=== PATIENT | female | born 1995 | race Caucasian/White ===

== ENCOUNTER → 2020-10-22 13:56 | Outpatient (BNVA) | payer OTHER, SELFPAY | PROVIDERS: Family Provider Pediatrics Adolescent Medicine; Visit Provider Surgery | DX: Z20.828 Contact with and (suspected) exposure to other viral communicable diseases (principal); Z01.812 Encounter for preprocedural laboratory examination | CPT/HCPCS: 87635 ==

== ENCOUNTER 2020-10-27 07:10 | Day surgery (SDC) | payer OTHER, SELFPAY ==
[2020-10-26 14:12] VITALS: BMI 20.3
[2020-10-27 07:25] VITALS: BP 105/68; PULSE 52; RESP 16; TEMP 36.4; O2SAT 100
[2020-10-27] MEDS: sodium chloride 0.9% 1,000 ML 30 ML IV (07:49)
[2020-10-27 07:57] LABS: OR HCG Qualitative Urine Negative (Negative)
--- NOTE | 2020-10-27 08:17 | W.PM.OPSUD ---
Surgery/Procedure H&P Update DATE OF PROCEDURE: October 27, 2020 DATE H&P PERFORMED: 10/12/20 H&P UPDATE INFORMATION: I have reviewed H&P completed within last 30 days, I have examined patient prior to procedure and No changes to prior documentation PREOP DIAGNOSIS: abdominal wall mass PLANNED PROCEDURE: Operation Date: 10/27/20 08:30 Proposed Procedures p Excision abdominal wall mass 29580 r22.2(Not Applicable) - Bethel Lino MD
--- NOTE | 2020-10-27 08:20 | ANES.PREANE2 ---
Pre-Anesthetic Assessment Pre-Anesthetic Assessment: Height/Weight: Height 1.7 m Weight 58.967 kg Temp Pulse Resp BP Pulse Ox 97.5 F L 52 L 16 105/68 100 10/27/20 07:25 10/27/20 07:25 10/27/20 07:25 10/27/20 07:25 10/27/20 07:25 Preop Diagnosis: abdominal wall mass Proposed Procedure: Operation Date: 10/27/20 08:30 Proposed Procedures p Excision abdominal wall mass [id number] r22.2(Not Applicable) - Bethel Lino MD Familial anesthetic complications: denies Was Beta Nav taken within 24 hours: N/A Last intake: Intake Last Liquid Date 10/26/20 Last Liquid Time 08:00 Last Solid Date 10/26/20 Last Solid Time 20:00 Last Intake: 00:02 Social: Social History: Tobacco and No alcohol Packs per day: 1-2 packs per week Exam: Pre-Anes Outpt Exam: alert, oriented x 3 and clear to auscultation bilaterally Airway: Submandibular: WNL Cervical ROM: WNL MP: 1 Pulmonary: Pulmonary: URI (sinus infection last week treated with antibiotics ) CV/HEM: CV/HEM: None reported : : None reported Hepatic: Hepatic: None reported GI: GI: None reported Metabolic: Metabolic: None reported Musc/skel: Musc/skel: None reported Neuropsych: Neuropsych: None reported Anesthetic Plan: ASA status: 2 Anesthesia: Anesthesia Evaluation and MAC Meds/Allergies Current Medications: Current Medications Generic Name Dose Route Start Last Admin Trade Name Freq PRN Reason Stop Dose Admin Sodium Chloride 1,000 mls @ 30 ml s/hr 10/27/20 07:15 10/27/20 07:49 Sodium Chloride 0.9% IV 10/28/20 07:14 30 mls/hr .Q24H MATT Administration PFSH Anesthesia PFSH: Surgical History History of Family History Denies family history of Anesthesia complication Bleeding disorder Social History Smoking and tobacco status: current every day smoker Alcohol intake: current Alcohol intake frequency: holidays/special occasions only Female Reproductive History: Date of last menstrual period: 10/19/20 Data Anesthesia Other Labs: Laboratory Results - last 48 hr 10/27/20 07:50 Urine HCG, Qual Negative Cardiac Studies: No Data to Display
[2020-10-27 09:22] VITALS: BP 95/47; PULSE 78; RESP 12; TEMP 36.2; O2SAT 97
[2020-10-27 10:00] VITALS: BP 116/73; PULSE 51; RESP 16; TEMP 36.4; O2SAT 100
--- NOTE | 2020-10-27 13:47 | PM.OP ---
Operative Report Date of procedure: October 27, 2020 Pre-op Diagnosis: Right lower quadrant abdominal wall mass Post-op Diagnosis: Subcutaneous mass involving the anterior rectus sheath, appeared to be cystic with greenish drainage noted Post-op Findings: Aerobic and anaerobic cultures sent Procedure Done: Excision of abdominal wall mass Specimens removed/disposition: Abdominal wall mass Surgeon: Bethel Lino Anesthesia: MAC Condition: stable Disposition: PACU Procedure: The patient was taken to the operating room and placed under MAC after IV antibiotic had been administered. The right lower abdomen was prepped and draped in a sterile manner. 1% lidocaine with . 5% Marcaine was infiltrated around the palpable mass which had been marked prior to surgery. Using a 15 blade a 3 cm longitudinal incision was made over the palpable mass, subcutaneous tissues were divided using electrocautery and the mass was dissected free from the surrounding subcutaneous tissue and underlying anterior rectus sheath. There was no significant involvement of the rectus muscle noted. Aerobic and anaerobic wound cultures were obtained since there was greenish drainage noted when the cyst ruptured while manipulating. The wound was irrigated with saline, and the defect in the anterior rectus sheath was closed using 0 Vicryl suture, subcutaneous tissues approximated using interrupted 3-0 Vicryl suture and skin was closed using running subcuticular 4-0 Monocryl and surgical glue. The patient was transferred to recovery room in stable condition.
--- NOTE | 2020-10-27 13:57 | ANE.PACU2 ---
Inpatient post-anesthesia follow up: Airway intact: Yes Vital signs: Temperature 97.6 F Pulse Rate 51 Respiratory Rate 16 Blood Pressure 116/73 Pulse Oximetry 100 Oxygen Delivery Me thod Room Air Oxygen Flow Rate Fraction of Inspir ed Oxygen Hydration adequate: Yes Nausea and vomiting: No Pain level: 2 Mental status: Baseline
== END 2020-10-27 10:14 | disposition home or self-care (01) ==
PROVIDERS: PCP Physician Assistant Medical; Visit Provider Surgery
PROC: (CPT 58999; principal; 2020-10-27 08:30)
DX: N80.8 Other endometriosis (principal)
CPT/HCPCS: 58999; 12345; 81025; 84703; 87070; 87075; 87205; 88307; 96365; J0690; J2250; J2704; J3010; J7030

== ENCOUNTER → 2025-03-31 08:53 | Outpatient (BNVA) | payer MEDICAID, SELFPAY | PROVIDERS: PCP Physician Assistant Medical; Referring Provider Nurse Practitioner Family; Visit Provider Internal Medicine Rheumatology | DX: R76.8 Other specified abnormal immunological findings in serum (principal); R53.83 Other fatigue | CPT/HCPCS: 99204 ==